=== PATIENT | male | born 1955 | race Caucasian/White ===

== ENCOUNTER → 2024-05-07 | Outpatient (CLI) | payer MEDICARE, OTHER, SELFPAY ==
--- NOTE | 2024-05-07 07:52 | CT_ITS ---
STUDY: CT MAXILLOFACIAL SINUSES REASON FOR EXAM: Male, 68 years old. CHRONIC SINUSITIS, HEARING LOSS RT EAR RADIATION DOSAGE (If Supplied By Facility): CTDIvol = ( 33.06 ) mGy, DLP = ( 809.66 ) mGycm TECHNIQUE: The patient was scanned in a multi detector CT scanner. High resolution axial imaging was performed without the administration of intravenous contrast material. Sagittal and coronal images were reconstructed. Individualized dose optimization techniques were used for this CT. COMPARISON: None. FINDINGS: FRONTAL SINUSES: Normal aeration, without mucosal inflammatory disease. ETHMOIDAL SINUSES: Mucosal thickening in ethmoid air cells consistent with chronic sinusitis. MAXILLARY SINUSES: Mucosal thickening of the left maxillary sinus consistent with chronic sinusitis. SPHENOIDAL SINUSES: Mucosal thickening of the right sphenoid sinus consistent with chronic sinusitis. The right ostiomeatal unit is patent. Left ostiomeatal unit is occluded. There are paradoxical curvature of the bilateral middle turbinates. Normal bilateral inferior turbinates. Normal midline nasal septum. Spur of the right side of the nasal septum projects between the right middle and inferior turbinates. There is patency of the bilateral nasal airways. The visualized osseous structures are normal. The visualized bilateral orbital contents are normal. CT/Sinus/Facial Bone IMPRESSION: Chronic ethmoid, sphenoid, and maxillary sinusitis. Occluded left ostiomeatal unit. Paradoxical middle turbinates bilaterally. Spur the right side of the nasal septum projecting into the right nasal cavity between the right middle and inferior turbinates. Electronically Signed: Reggie Brantley MD at 11:16 EST ,
== END | disposition home or self-care (01) ==
PROVIDERS: PCP Nurse Practitioner Family; Referring Provider Otolaryngology; Visit Provider Otolaryngology
DX: J32.9 Chronic sinusitis, unspecified (principal)
CPT/HCPCS: 70486